=== PATIENT | male | born 1955 | race Caucasian/White ===

== ENCOUNTER 2017-09-05 12:33 | Outpatient (CLI) | payer BC ==
--- NOTE | 2017-09-05 14:55 | RAD ---
LUMBAR SPINE FOUR VIEWS: History: 62-year-old male with history of lumbar spine radiculopathy with chronic low back pain, worsening wit h left leg radiculopathy as well as some right leg pain. FINDINGS: There is some dextroscoliosis of the upper lumbar/lower thoracic vertebral column. Multilevel spondyl osis. No significant abnormal translation between flexion and extension. IMPRESSION: Lumbar spondylosis. Mild scoliosis. No evidence for abnormal translation between flexion and extensio n. POS: [facility]
--- NOTE | 2017-09-05 15:15 | MRI ---
LUMBAR SPINE WITHOUT CONTRAST: HISTORY: Lumbar spine radiculopathy. COMPARISON: None. TECHNIQUE: A lumbar spine MRI is performed without intravenous Gadolinium administration. Multisequential, mult iplanar imaging is performed. FINDINGS: There is appropriate T1 marrow signal intensity in the lumbar vertebrae. Vertebral body height is ma intained. No fracture. There are type I Modic changes at L2-L3 and L5-S1. There appears to be prominence of the intra- and extrahepatic biliary system, incompletely evaluated. Minimal STIR hyperintensity is compatible with the areas of type I Modic changes as described above. Conus medullaris terminates at the inferior aspect of T12. T12-L1: Adequate disk hydration. No significant central canal stenosis. Neural foramen are patent. L1-L2: Adequate disk hydration. No significant central canal stenosis. Neural foramen are patent. L2-L3: Desiccation with mild loss of disk space height. There is a generalized disk bulge without s ignificant central canal stenosis. Right neural foramen is patent. Mild left foraminal narrowing. L3-L4: Desiccation without significant loss of disk space height. Generalized disk bulge does not c ause any significant central canal stenosis. Neural foramen are patent. L4-L5: Adequate disk hydration. No significant loss of disk space height. There is a T2 hyperinten sity/STIR hyperintensity along the posterior margin of the disk with a slight left paracentral compon ent. A small annular fissure is present. Annular fissure is near the traversing left L5 nerve root. No significant central canal stenosis. Right neural foramen is patent. Mild left foraminal narrow ing. L5-S1: No significant loss of disk space height. No significant central canal stenosis. Moderate b ilateral foraminal narrowing. IMPRESSION: 1. Annular fissure at L4-L5. 2. Dilatation of the intra- and extrahepatic biliary system, incompletely evaluated. Further interr ogation with a CT abdomen and pelvis with IV and oral contrast is recommended. CODE T POS: [facility]
--- NOTE | 2017-09-05 15:29 | MRI ---
MRI CERVICAL SPINE WITHOUT CONTRAST: Date: 09-05-17 Comparison: None. History: Neck pain with left sided radiculopathy, numbness and tingling down the left arm into the mckeon nds and fingers. Technique: Multiplanar, multisequence MR imaging of the cervical spine is provided without contrast. FINDINGS: The sagittal STIR imaging demonstrates no evidence for osseous marrow edema. There is straightening of the normal cervical lordosis with a mild degree of kyphosis centered at the C6-7 level. There is moderate degenerative change at the atlantoaxial interspace. Mild edematous deg enerative endplate changes are present at C2-3. C2-3: There is disc space narrowing and disc desiccation. There is mild facet and uncal vertebral ost eophyte formation on the right. There is no significant central canal or neural foraminal stenosis. C3-4: There is disc space narrowing and disc desiccation with bilateral facet and uncal vertebral ost eophyte formation. There is disc bulge with partial effacement of the ventral thecal sac and mild christina tral canal stenosis. Moderate/severe right sided neural foraminal stenosis. There is moderate left ne ural foraminal stenosis. C4-5: There is disc space narrowing and disc desiccation. There is mild facet hypertrophy and uncal v ertebral osteophyte formation with no significant central canal or neural foraminal stenosis. C5-6: There is disc space narrowing, disc desiccation, mild disc bulge and anterior osteophyte format ion. No significant central canal stenosis. Facet and uncal vertebral osteophyte formation noted bila terally with mild to moderate bilateral neural foraminal stenosis, right greater than left. C6-7: There is disc space narrowing and disc desiccation with disc bulge partially effacing the ventr al thecal sac and causing mild central canal stenosis. Bilateral facet and uncal vertebral osteophyte formation, right greater than left, with moderate bilateral neural foraminal stenosis, right greater than left. C7-T1: There is disc space narrowing, disc desiccation and disc bulge with partial effacement of the ventral thecal sac and mild central canal stenosis. There is moderate bilateral neural foraminal sten osis. No focal area of abnormal signal intensity is identified within the cervical cord. IMPRESSION: 1. Multilevel degenerative change within the cervical spine as described above. POS: [facility]
--- NOTE | 2017-09-05 15:42 | RAD ---
CERVICAL SPINE FOUR VIEWS: HISTORY: Neck pain. COMPARISON: None. FINDINGS: There is no prevertebral soft tissue swelling. The predental space is normal. On the AP projection, there are degenerative changes of the facets. In the neutral position, there is slight reversal of the normal cervical lordosis at C5, C6, and C7. No abnormal motion upon extension or flexion. IMPRESSION: Degenerative changes of the cervical spine. Refer to cervical spine MRI report performed earlier today for further details. POS: [facility]
== END 2017-09-05 12:34 | disposition home or self-care (01) ==
LOC: SCSMRI 12:33
PROVIDERS: ATTEND Surgery
DX: M47.22 Other spondylosis with radiculopathy, cervical region (principal); M47.26 Other spondylosis with radiculopathy, lumbar region; M41.9 Scoliosis, unspecified; M47.894 Other spondylosis, thoracic region; Q05.7 Lumbar spina bifida without hydrocephalus
CPT/HCPCS: 72050; 72110; 72141; 72148